=== PATIENT | female | born 1945 | race Caucasian/White ===

== ENCOUNTER 2017-05-25 22:23 | Emergency (ER) | payer MEDICARE, BC ==
[2017-05-25 23:14] LABS: BASOPHILS % (AUTO) 1 % (0-3); EOSINOPHILS % (AUTO) 1 % (0-9); HEMATOCRIT 40 % (35-47); MEAN CORPUSCULAR HGB CONC 34.9 gm/dl (32.0-36.0); MEAN CORPUSCULAR VOLUME 92 fL (81-99); MONOCYTES % (AUTO) 9.3 % (0-12); NEUTROPHILS % (AUTO) 70.7 % (37-80)
[2017-05-25 23:27] LABS: ALBUMIN 4.3 gm/dl (3.4-5.0); ALT 44 IU/L (14-63); CALCIUM 10.1 mg/dl (8.5-10.1); GLOM FILT RATE 41 mL/min (>60); POTASSIUM 4.6 mMol/L (3.5-5.1); SALICYLATE < 2.8 mg/dl (2.8-30.0); SODIUM 135 mMol/L (136-145); THYROID STIMULATING HORMONE 2.369 uIU/ml (0.358-3.740)
[2017-05-25] MEDS ORDERED: LORAZEPAM 0.5 MG TAB PO ONE (23:29)
[2017-05-25] MEDS ORDERED: ONDANSETRON 4 MG ODT BU ONE (23:30)
[2017-05-25] MEDS ORDERED: ONDANSETRON 4 MG ODT ONE (23:31)
[2017-05-25] MEDS ORDERED: LORAZEPAM 0.5 MG TAB ONE (23:31)
[2017-05-26 01:12] LABS: APPEARANCE,URINE Clear; BILIRUBIN,URINE NEGATIVE (NEGATIVE); COLOR,URINE Yellow; GLUCOSE, URINE (UA) NEGATIVE (NEGATIVE); KETONES,URINE NEGATIVE (NEGATIVE); LEUKOCYTE ESTERASE ,URINE NEGATIVE (NEGATIVE); NITRATE,URINE NEGATIVE (NEGATIVE); OCCULT BLOOD,URINE TRACE LYSED (NEG-TRACE); UROBILINOGEN,URINE 0.2 (0.2-1.0 EU)
[2017-05-26 01:23] LABS: AMPHETAMINES NEGATIVE (NEGATIVE); METHADONE NEGATIVE (NEGATIVE); OPIATES(OP13) NEGATIVE (NEGATIVE); OXYCODONE(OXY) NEGATIVE (NEGATIVE); PROPOXYPHENE(PPX) NEGATIVE (NEGATIVE); RBC,URINE NEG (0-3AV/HPF); TRICYCLIC ANTIDEPRESSANTS NEGATIVE (NEGATIVE); WBC,URINE NEG (0-5AV/HPF)
[2017-05-26] MEDS ORDERED: LORAZEPAM 0.5 MG TAB PO ONE (05:58)
[2017-05-26] MEDS ORDERED: LORAZEPAM 0.5 MG TAB ONE (05:59)
[2017-05-26] MEDS ORDERED: DIVALPROEX 250 MG TCP PO SCH (10:44)
[2017-05-26] MEDS ORDERED: SPIRONOLACTONE 25 MG TAB PO SCH (10:45)
[2017-05-26] MEDS ORDERED: METOPROLOL TARTRATE 25 MG TAB PO SCH (10:45)
[2017-05-26] MEDS ORDERED: ASPIRIN EC 81 MG PO SCH (10:45)
[2017-05-26] MEDS ORDERED: LITHIUM CARBONATE 450 MG PO SCH (10:45)
[2017-05-26] MEDS ORDERED: METOPROLOL TARTRATE 25 MG TAB ONE (11:08)
[2017-05-26] MEDS ORDERED: ASPIRIN 81 MG CHEWABLE CTB ONE (11:08)
[2017-05-26] MEDS ORDERED: SPIRONOLACTONE 25 MG TAB ONE (11:08)
[2017-05-26] MEDS ORDERED: DIVALPROEX 250 MG TAB.ER.24H PO ONE (11:13)
[2017-05-26 16:33] VITALS: BP 153/84; PULSE 90; RESP 20; TEMP 98.3; O2SAT 98
== END 2017-05-26 17:50 | disposition short-term general hospital (02) | DRG 885 ==
LOC: ED 22:23
DX: F31.9 Bipolar disorder, unspecified (principal); F22 Delusional disorders
CPT/HCPCS: 36415; 51798; 70450; 80053; 80305; 80307; 81001; 84443; 85025; 99284; 99285

== ENCOUNTER 2018-02-06 08:16 | Day surgery (SDC) | payer MEDICARE, BC ==
[~2018-02-06 08:16] MED LIST: LIDOCAINE HCL 1% MPF SOL ONE; PROPOFOL 500 MG/50 ML EMU IV ONE
[2018-02-06 10:17] VITALS: TEMP 98.2
[2018-02-06 10:25] VITALS: PULSE 70
[2018-02-06 10:30] VITALS: O2SAT 93
[2018-02-06 10:42] VITALS: BP 161/78; RESP 18
== END 2018-02-06 11:02 | disposition home or self-care (01) | DRG 392 ==
LOC: SURG 08:16
PROVIDERS: ATTEND Internal Medicine Gastroenterology
DX: R19.7 Diarrhea, unspecified (principal); D12.0 Benign neoplasm of cecum; K59.00 Constipation, unspecified; Z86.010 Personal history of colon polyps; K64.4 Residual hemorrhoidal skin tags; D12.2 Benign neoplasm of ascending colon; K57.30 Diverticulosis of large intestine without perforation or abscess without bleeding; D12.8 Benign neoplasm of rectum; K64.8 Other hemorrhoids
CPT/HCPCS: 82962; J2001; J2704